=== PATIENT | male | born 1960 | race African-American/Black ===

== ENCOUNTER 2019-10-13 03:19 | Emergency (ER) | payer OTHER, SELFPAY ==
[2019-10-13] VITALS (7 sets, daily range): BP systolic 132–172; BP diastolic 70–90; PULSE 56–80; RESP 16–22; TEMP 36.9–37.4; O2SAT 98–100
--- NOTE | ~2019-10-13 | XR_ITS ---
EXAMINATION: XR chest 2V DATE: 10/13/2019 04:53 INDICATION: Cough and wheezing TECHNIQUE: PA and lateral views of the chest were obtained. COMPARISON: None FINDINGS: Mild respiratory motion on the lateral projection. No focal airspace opacities, pulmonary edema, pleu ral effusion or pneumothorax. The cardiomediastinal silhouette is normal. Mild thoracic spondylosis. IMPRESSION: 1. No acute cardiopulmonary disease. Reviewed, dictated and finalized at location A. [employer]
[2019-10-13] MEDS: IPRATROPIUM BR 0.02% INH SOLN 0.5 MG/2.5 ML VIAL INHALATION (04:29)
[2019-10-13] MEDS: ALBUTEROL SULFATE NEB 2.5 MG/0.5 ML INH 5 MG INHALATION (04:29)
--- NOTE | 2019-10-13 05:50 | ED.URI ---
HPI - URI/Sore Throat General Chief Complaint: Upper Respiratory Infection Stated Complaint: flu or [place] Time Seen by Provider: 10/13/19 03:57 Source: patient Mode of arrival: ambulatory Limitations: no limitations History of Present Illness HPI Narrative: Patient is a 59-year-old male who presents to the emergency department with complaint of flulike symptoms. Patient reports onset of symptoms several days ago. is ill with similar symptoms. He reports productive cough, nausea, vomiting, diarrhea, chills, and myalgias. Patient has also noticed some wheezing. MD elicited complaint: cough Onset (ago): day(s) Consistency: constant Relieving factors: nothing Context: sick contacts ( ill with similar symptoms) Associated symptoms: chills, myalgias, nausea, vomiting and diarrhea Related Data Allergies Allergy/AdvReac Type Severity Reaction Status Date / Time No Known Allergies Allergy Verified 10/13/19 05:59 Review of Systems Review of Systems: All systems reviewed & are unremarkable except as noted in HPI and below Constitutional: Constitutional: Reports chills ENT: Reports nasal congestion and Reports sore throat Respiratory: Respiratory: Reports cough and Reports wheezing Gastrointestinal: Gastrointestinal: Reports diarrhea, Reports nausea and Reports vomiting PMFSH Past Medical History Medical History (Updated 10/13/19 @ 05:59 by Purvi Menendez MD) Hypertension Hypothyroid Surgical History Surgical History (Updated 10/13/19 @ 05:54 by Purvi Menendez MD) History of exploratory laparotomy Social History Social History (Updated 10/13/19 @ 05:54 by Purvi Menendez MD) Smoking status: Current every day smoker Gender identity (if verbalized by the patient): Male Exam Const: General: cooperative, no acute distress and alert Nutritional Appearance: obese Orientation/consciousness: patient oriented x3 Limitations: no limitations HENMT: Mouth: Yes lip normal and Yes moist mucous membranes Resp: Effort & Inspection: normal respiratory effort Auscultation: clear to auscultation bilaterally and wheezes expiratory wheezes, scattered wheezes and throughout Cardio: Rate: regular rate Rhythm: regular rhythm GI: GI Palp: Yes Soft to palpation and No Tenderness to palpation present (GI) Auscultation: normal bowel sounds Skin: General skin exam: normal color Neuro: General: patient oriented x3 Cognition (Neuro): normal cognition Speech: normal speech Extrem: General: normal to inspection, full ROM and no clubbing, cyanosis or edema Psych: Mental Status: mental status grossly normal Affect: normal affect Attitude: cooperative Course Course Emergency Course: Patient without any findings of pneumonia on chest x-ray. Influenza and strep test negative. Patient ill with symptoms for several days. ill with similar symptoms. Patient feels better after nebulizer treatment. Will prescribe inhaler. Discussed symptomatic management. Vital Signs Vital signs: Vital Signs Temperature 99.3 F 10/13/19 03:41 Pulse Rate 56 L 10/13/19 03:41 Respiratory Rate 20 10/13/19 03:41 Blood Pressure 172/90 H 10/13/19 03:41 Pulse Oximetry 99 10/13/19 03:41 Temperature 98.6 F 10/13/19 03:49 Pulse Rate 59 L 10/13/19 05:14 Respiratory Rate 18 10/13/19 05:14 Blood Pressure 132/70 10/13/19 05:14 Pulse Oximetry 100 10/13/19 05:14 MDM - URI/Sore Throat Lab Data Attestation: I reviewed the patient's lab results. Labs: Influenza A Screen Negative Reference Range: Negative Influenza B Screen Negative Reference Range: Negative Strep Screen Presumptive Negative *(Reference Range: Negative)* Imaging Data Attestation: I personally reviewed and interpreted this imaging study as follows: My impression: CXR: No acute abnormality Critical Care Time Critical Care Time Critical Care Time: No
== END 2019-10-13 06:09 | disposition home or self-care (01) ==
PROVIDERS: Emergency Provider Emergency Medicine; PCP Internal Medicine Infectious Disease
DX: J06.9 Acute upper respiratory infection, unspecified (principal); J40 Bronchitis, not specified as acute or chronic; I10 Essential (primary) hypertension; E03.9 Hypothyroidism, unspecified; F17.200 Nicotine dependence, unspecified, uncomplicated
CPT/HCPCS: 71046; 87081; 87804; 87880; 94640; 99283